=== PATIENT | male | born 1960 | race Caucasian/White ===

== ENCOUNTER 2023-12-26 10:19 | Outpatient (AMB) | payer OTHER, SELFPAY ==
[2023-12-26 10:21] VITALS: BP 160/98; PULSE 78; O2SAT 97; BMI 23.7
--- NOTE | 2023-12-26 10:21 | A.OFFPC_ITS ---
Vital Signs 12/26/23 10:21 Height 5 ft 11 in Weight 170 lb 0.2 oz BMI 23.7 BP 160/98 H Blood Pressure Location Lt brachial Position Sitting Pulse 78 Pulse Source Pulse Oximeter Pulse Oximetry (%) 97 Oxygen Delivery Method Room Air Intake Visit Reasons: PE, HTN Intake Note: Patient is here today for a physical. Technician Inventory Specialist Required: No Allergies No Known Allergies Allergy (Verified 12/26/23 10:21) Medication List - Last Reconciled 12/26/23 by Goyo Meneses MD aspirin (Adult Low Dose Aspirin) 81 mg PO DAILY [id number] C-Mn 500-400 mg (Glucosamine-Chondroitin Complex) caps PO lisinopril 5 mg PO DAILY 90 days omega-3 fatty acids (Fish Oil Concentrate) 1,000 mg PO DAILY tadalafil (Cialis) 20 mg PO Q OTHER DAY PRN 30 days Tobacco use date assessed: 12/26/23 Dental Screening Dental Screen Date: 12/26/23 Did you have a dental visit in the last 12 months?: Yes Did you have a dental problem in the last 6 months where you did not have access to dental care?: No Was dental information given to patient?: Patient has dentist HPI PE, HTN HPI Details 63-year-old male with hypertension impai red glucose tolerance and erectile dysfunction last seen last year and is here for physical exam. Patient's colonoscopy is up-to-date March 2016. At 135/140- 85 - 90 [facility] Medical History (Updated 12/22/22 @ 10:56 by Goyo Meneses MD) Shoulder pain, left Polysubstance abuse Macrocytosis Erectile dysfunction Anemia Hypertension Impaired glucose tolerance Family History (Updated 12/22/22 @ 10:21 by Hanna Padilla [facility]) Father Myocardial infarct Maternal Uncle Colon cancer Social History (Updated 12/26/23 @ 10:53 by Goyo Meneess MD) Housing: House Alcohol intake: current Alcohol intake frequency: 0-2 drinks per day Comment: 2-3 x a week glass of wine Patient Tobacco Use Status: Former Tobacco user Tobacco use type: Cigarette Years Smoked: 2019, 1/2 a pack an day 20 years e-Cigarette/Vaping Use: Never Used Second Hand Smoke Exposure: No Current occupational status: retired Cognitive needs: No Hearing needs: No Vision needs: Yes Questionnaire PHQ-9 Over the last 2 weeks, how often have you been bothered by any of the following problems? 1. Little interest or pleasure in doing things: not at all 2. Feeling down, depressed, or hopeless: not at all 3. Trouble falling or staying asleep, or sleeping too much: not at all 4. Feeling tired or having little energy: not at all 5. Poor appetite or overeating: not at all 6. Feeling bad about yourself - or that you are a failure or have let yourself or your family down: not at all 7. Trouble concentrating on things, such as reading the newspaper or watching television: not at all 8. Moving or speaking so slowly that other people could have noticed. Or the opposite - being so fidgety or restless that you have been moving around a lot more than usual: not at all 9. Thoughts that you would be better off or of hurting yourself in some way: not at all Total score: 0 Depression Screening Interpretation: Negative Depression Screening Done: Yes 00214 - PHQ-9 Billing: Yes Source: Developed by Drs. Ramez Aldana, Brittanie Hector, Mickey Chester and colleagues, with an educational wendi from [employer]. Thrive Questionnaire Date Thrive assessed: 12/26/23 I am a: Patient What is your living situation today?: I have a steady place to live Within the past 12 months, did the food you bought not last and you didn't have the money to get more?: Never true Within the past 12 months, did you worry whether your food would run out before you got money to buy more?: Never true Do you have trouble paying for medicines?: No Do you have trouble getting transportation to medical appointments?: No Do you have trouble paying your heating and electricity bill?: No Do you have trouble taking care of your child, family member or friend?: No Do you have trouble with day-to-day activities such as bathing, preparing meals, shopping, managing finances, etc.?: No Are you currently unemployed and looking for a job?: No Are you interested in more education?: No Currently or been in a relationship where the following occur: no concerns reported THRIVE Score: 0 AUDIT C Alcohol Use Questionnaire (AUDIT-C) 1. How often do you have a drink containing alcohol?: 4 or more times a week 2. How many drinks containing alcohol do you have on a typical day when you are drinking?: 1 or 2 3. How often do you have six or more drinks on one occasion?: Never Total Score: 4 SALVADOR-7 AMB Questionnaire SALVADOR-7 Date SALVADOR - 7 assessed: 12/26/23 Feeling nervous, anxious, or on edge: 0 = Not at all Not being able to stop or control worryin = Not at all Worrying too much about different things: 0 = Not at all Trouble relaxin = Not at all Being so restless that it is hard to sit still: 0 = Not at all Becoming easily annoyed or irritable: 0 = Not at all Feeling afraid as if something awful might happen: 0 = Not at all Total SALVADOR-7 score (0-4 normal; 5-9 mild; 10-14 moderate; 15-21 severe): 0 Source: Developed by Drs. Ramez Aldana, Brittanie Hector, Mickey Chester and colleagues, with an educational wendi from [employer]. SALVADOR-7 Assessment Billing SALVADOR-7 Assessment Tool: SALVADOR-7 Assessment 31042 Review of Systems Const Denies poor appetite and Denies weakness Eyes Denies no additional complaints ENT Reports Normal hearing present, Denies dizziness, Denies nasal congestion, Denies tinnitus and Denies sore throat Card Denies chest pain, Denies syncope, Denies rapid heart rate and Denies dyspnea Resp Denies cough and Denies dyspnea GI Denies change in stool character, Reports constipation, Denies diarrhea, Denies nausea and Denies vomiting Denies dysuria and Denies urinary frequency Neuro Reports Normal hearing present, Denies confusion, Denies dizziness, Denies syncope and Denies weakness Psych Denies confusion Physical exam (Primary Care) Vital Signs: Last Vital Signs Pulse 78 12/26/23 10:21 BP 160/98 H 12/26/23 10:21 Pulse Ox 97 12/26/23 10:21 Oxygen Delivery Method Room Air 12/26/23 10:21 BMI result Body Mass Index 23.7 Tobacco/Smoking Status: Tobacco use Status Tobacco use date assessed 12/26/23 12/26/23 10:22 Patient Tobacco Use Status Former Tobacco user 12/26/23 10:22 Tobacco use type Cigarette 12/26/23 10:22 e-Cigarette/Vaping Use Never Used 12/26/23 10:22 PHQ-9: PHQ-9 Score PHQ-9: Total score 0 12/26/23 10:30 Depression Screening Interpretation: Negative Thrive Assessment: Date of Thrive Assessment Date Thrive assessed 12/26/23 12/26/23 10:22 Currently or been in a relationship where the following occur: no concerns reported Const General: No confusion Orientation/consciousness: No confusion HENMT Head: Yes normocephalic Ears: external ears normal and TM's normal bilaterally Face and sinus: Yes normal facial exam Mouth: moist mucous membranes Throat: Yes tonsils normal Eyes Conjunctivae: conjunctivae normal Pupils: Equal, round and reactive pupils present and Pupil accommodation reflex normal Direct Ophthalmoscopy: normal light reflex Neck Neck: No lymphadenopathy Thyroid: Thyroid normal Chest Chest palpation & inspection: normal inspection of the chest Resp Effort & Inspection: normal respiratory effort and no audible wheezes Auscultation: clear to auscultation bilaterally, no crackles, no wheezes and lung sounds not diminished Cardio Rate: regular rate Rhythm: regular rhythm Peripheral pulses: radial pulses present and dorsalis pedis present GI Other: guaiac negative prostate N Palpation (GI): no masses Auscultation: normal bowel sounds and normoactive bowel sounds Male General Exam: Yes normal external exam Skin General skin exam: no rashes or lesions noted Rashes: no rashes Neuro General: No confusion Cranial nerves: Yes Equal, round and reactive pupils present and Yes Normal hearing present Cognition (Neuro): normal cognition Gait exam (Neuro): Normal gait present Motor exam (neuro): 5/5 motor strength present throughout Deep tendon reflexes (DTR's): Right brachioradialis reflex intensity grade: 2+, Left brachioradialis reflex intensity grade: 2+, Right patellar reflex intensity grade: 2+ and Left patellar reflex intensity grade: 2+ Extrem General: No edema Assessment and Plan Assessment & Plan (1) Annual physical exam: Code(s): Z00.00 - Encounter for general adult medical examination without abnormal findings (2) Hypertension: Code(s): I10 - Essential (primary) hypertension Qualifiers: Hypertension type: essential hypertension Qualified Code(s): I10 - Essential (primary) hypertension Plan: Continue with blood pressure medication. Decrease salt intake and exercise on lisinopril 5 mg once a day. Concern about the blood pressure being high and advised to increase lisinopril to 10 mg once a day and keep me updated with the blood pressure. (3) Impaired glucose tolerance: Code(s): R73.02 - Impaired glucose tolerance (oral) Plan: Decrease the amount of carbohydrate intake, pasta, bread, rice and potatoes are all sugar and that is aside from all the sweet stuff, remember that fruits are good but they are Sweet also. Blood work request (4) Erectile dysfunction: Code(s): N52.9 - Male erectile dysfunction, unspecified Plan: Patient has requested for change in medication. Orders: Orders Thyroid Stimulating Hormone Today R73.02 - Impaired glucose tolerance (oral) Free T4 (Free Thyroxine) Today R73.02 - Impaired glucose tolerance (oral) Complete Blood Count Auto Diff Today R73.02 - Impaired glucose tolerance (oral) Comprehensive Met. Panel Today R73.02 - Impaired glucose tolerance (oral) Lipid Panel Today E78.00 - Pure hypercholesterolemia, unspecified, R73.02 - Impaired glucose tolerance (oral) Vitamin B12 and Folate Today R73.02 - Impaired glucose tolerance (oral) Prostate Specific Antigen Scr Today R73.02 - Impaired glucose tolerance (oral) Medications: New sildenafil administer 30 minutes to 4 hours before activity 100 mg PO DAILY PRN 20 tabs 11RF sexual activity N52.9 - Male erectile dysfunction, unspecified Changed From lisinopril 5 mg PO DAILY 90 days 90 tabs 3RF I10 - Essential (primary) hypertension To lisinopril 10 mg PO DAILY 90 days 90 tabs 3RF I10 - Essential (primary) hypertension Discontinued tadalafil (Cialis) administer approximately 30min before sexual activity; do not use more than 1 dose per 24hrs Discontinued Reason: Patient Completed Course 20 mg PO Q OTHER DAY 30 days PRN 10 tabs 8RF sexual activity N52.9 - Male erectile dysfunction, unspecified Coding Level of Care Code Est Pt Prev Care 40-64y(42904) Diagnoses Annual physical exam Z00.00 Essential hypertension I10 Hypertension type: essential hypertension Impaired glucose tolerance R73.02 Erectile dysfunction N52.9 Additional Codes SALVADOR-7 Assessment Billing - SALVADOR-7 Assessment Tool: SALVADOR-7 Assessment 42630 ([id number])
== END 2023-12-26 11:12 | disposition home or self-care (01) ==
PROVIDERS: PCP Internal Medicine; Visit Provider Internal Medicine
DX: Z00.00 Encounter for general adult medical examination without abnormal findings (principal); I10 Essential (primary) hypertension; R73.02 Impaired glucose tolerance (oral); N52.9 Male erectile dysfunction, unspecified
CPT/HCPCS: 99396

== ENCOUNTER 2024-08-27 08:30 | Outpatient (AMB) | payer OTHER, SELFPAY ==
--- NOTE | 2024-08-27 08:43 | A.OFFPC_ITS ---
Vital Signs 3 08/27/24 08:46 Height 5 ft 11 in Weight 171 lb 8 oz BMI 23.9 BP 140/90 H Blood Pressure Location Lt brachial Position Sitting Pulse 79 Pulse Source Pulse Oximeter Temp 98 F Temp Source Skin Pulse Oximetry (%) 97 Oxygen Delivery Method Room Air Intake Visit Reasons: Dermatolist Refferal Intake Note: Patient is here to follow up on Physicist [facility] referral for black spot on right side of head. Master Technician Required: No Nurse Informaticist: Not Required per policy Accompanied by: Self / Same As Patient Allergies No Known Allergies Allergy (Verified 08/27/24 08:45) Medication List - Last Reconciled 08/27/24 by Anjali Roy PA-C aspirin (Adult Low Dose Aspirin) 81 mg PO DAILY qfejnahfexr-meiljdqwl-rsy C-Mn 500-400 mg (Glucosamine-Chondroitin Complex) caps PO lisinopril 10 mg PO DAILY 90 days omega-3 fatty acids (Fish Oil Concentrate) 1,000 mg PO DAILY sildenafil 100 mg PO DAILY PRN Tobacco use date assessed: 08/27/24 Dental Screening Dental Screen Date: 08/27/24 Did you have a dental visit in the last 12 months?: Yes Did you have a dental problem in the last 6 months where you did not have access to dental care?: No Was dental information given to patient?: Patient has dentist HPI Dermatolist Refferal 2 HPI0 Details 64 year old male with past history of im paired glucose tolerance, hypertension and erectile dysfunction last seen by Dr. Meneses 12/2023 coming in for acute problem. Patient tells us use of the Julee shot last week when the negrete noticed a dark spot on the right side of the scalp. He states he has felt a scab in that area for the last several months and we will occasionally scratch at it but the lesion is not itchy or painful and does not bleed when scratched. He also has a small spot on his right lower back that has been evaluated in the past determined to be likely eczema or psoriasis but has never had it evaluated by a rn provider relations. The lesion on his back we will itch occasionally but does not bleed. [facility] Medical History (Updated 08/27/24 @ 09:14 by Anjali Roy PA-C) Shoulder pain, left Polysubstance abuse Macrocytosis Erectile dysfunction Anemia Hypertension Impaired glucose tolerance Surgical History (Updated 08/27/24 @ 08:49 by ALMA Kohler) No pertinent past surgical history Family History Father Myocardial infarct Maternal Uncle Colon cancer Social History Housing: House Alcohol intake: current Alcohol intake frequency: 0-2 drinks per day Comment: 2-3 x a week glass of wine Patient Tobacco Use Status: Former Tobacco user Tobacco use type: Cigarette Years Smoked: 2020, 1/2 a pack an day 20 years e-Cigarette/Vaping Use: Never Used Second Hand Smoke Exposure: Yes service: No Current occupational status: retired Cognitive needs: No Hearing needs: No Vision needs: Yes Questionnaire PHQ-9 Over the last 2 weeks, how often have you been bothered by any of the following problems? 1. Little interest or pleasure in doing things: not at all 2. Feeling down, depressed, or hopeless: not at all 3. Trouble falling or staying asleep, or sleeping too much: not at all 4. Feeling tired or having little energy: not at all 5. Poor appetite or overeating: not at all 6. Feeling bad about yourself - or that you are a failure or have let yourself or your family down: not at all 7. Trouble concentrating on things, such as reading the newspaper or watching television: not at all 8. Moving or speaking so slowly that other people could have noticed. Or the opposite - being so fidgety or restless that you have been moving around a lot more than usual: not at all 9. Thoughts that you would be better off or of hurting yourself in some way: not at all Total score: 0 Depression Screening Interpretation: Negative Depression Screening Done: Yes Source: Developed by Drs. Ramez Aldana, Brittanie Hector, Mickey Chester and colleagues, with an educational wendi from [employer]. Thrive Questionnaire Date Thrive assessed: 08/27/24 I am a: Patient What is your living situation today?: I have a steady place to live Within the past 12 months, did the food you bought not last and you didn't have the money to get more?: Never true Within the past 12 months, did you worry whether your food would run out before you got money to buy more?: Never true Do you have trouble paying for medicines?: No Do you have trouble getting transportation to medical appointments?: No Do you have trouble paying your heating and electricity bill?: No Do you have trouble taking care of your child, family member or friend?: No Do you have trouble with day-to-day activities such as bathing, preparing meals, shopping, managing finances, etc.?: No Are you currently unemployed and looking for a job?: No Are you interested in more education?: No Please select the resources that you would like help with: None Currently or been in a relationship where the following occur: No concerns reported THRIVE Score: 0 AUDIT C Alcohol Use Questionnaire (AUDIT-C) 1. How often do you have a drink containing alcohol?: 4 or more times a week 2. How many drinks containing alcohol do you have on a typical day when you are drinking?: 1 or 2 Total Score: 4 SALVADOR-7 AMB Questionnaire SALVADOR-7 Date SALVADOR - 7 assessed: 08/27/24 Feeling nervous, anxious, or on edge: 0 = Not at all Not being able to stop or control worryin = Not at all Worrying too much about different things: 0 = Not at all Trouble relaxin = Not at all Being so restless that it is hard to sit still: 0 = Not at all Becoming easily annoyed or irritable: 0 = Not at all Feeling afraid as if something awful might happen: 0 = Not at all Total SALVADOR-7 score (0-4 normal; 5-9 mild; 10-14 moderate; 15-21 severe): 0 Source: Developed by Drs. Ramez Aldana, Brittanie Hector, Mickey Chester and colleagues, with an educational wendi from [employer]. Review of Systems Const Denies body aches, Denies chills, Denies fever(s), Denies headache(s) and Denies poor appetite Eyes Reports no additional complaints ENT Denies dizziness and Denies headache(s) Card Denies chest pain, Denies lightheadedness and Denies dyspnea Resp Denies cough and Denies dyspnea GI Reports no additional complaints Reports no additional complaints Musc Reports no additional complaints Skin/Breast Reports system reviewed and no additional complaints, except as documented and Reports as per HPI Neuro Denies dizziness and Denies headache(s) Psych Reports no additional complaints Physical exam (Primary Care) Vital Signs: Last Vital Signs Temp 98 F 08/27/24 08:46 Pulse 79 08/27/24 08:46 BP 140/90 H 08/27/24 08:46 Pulse Ox 97 08/27/24 08:46 Oxygen Delivery Method Room Air 08/27/24 08:46 BMI result Body Mass Index 23.9 Tobacco/Smoking Status: Tobacco use Status Tobacco use date assessed 08/27/24 08/27/24 08:45 Patient Tobacco Use Status Former Tobacco user 08/27/24 08:45 Tobacco use type Cigarette 08/27/24 08:45 e-Cigarette/Vaping Use Never Used 08/27/24 08:45 PHQ-9: PHQ-9 Score PHQ-9: Total score 0 08/27/24 08:45 Depression Screening Interpretation: Negative Thrive Assessment: Date of Thrive Assessment Date Thrive assessed 08/27/24 08/27/24 08:45 Currently or been in a relationship where the following occur: No concerns reported Const General: cooperative, healthy appearing, comfortable and no acute distress Orientation/consciousness: patient oriented x3 HENMT Head: Yes normocephalic Head images: 2 1. Annular, brown nevi with regular borders, no dry or flaky skin Ears: hearing grossly normal bilaterally General nose exam: Normal external nose present Eyes General: appearance normal, both eyes and all related structures Conjunctivae: conjunctivae normal Neck Neck: Yes full ROM and Yes no lymphadenopathy Resp Effort & Inspection: normal respiratory effort Auscultation: clear to auscultation bilaterally, no crackles, no rales, no rhonchi and no wheezes Cardio Rate: regular rate Rhythm: regular rhythm Skin General skin exam: no rashes or lesions noted Full body images: 2 1. Eczematous lesions Neuro General: patient oriented x3 Gait exam (Neuro): Normal gait present Extrem General: Yes normal to inspection, Yes full ROM and No edema Psych Affect: normal affect Attitude: cooperative Insight: Good insight present (Psych) Judgement: Good judgement present (Psych) Coding Level of Care Code Est Pt Level 3 (86324) Diagnoses Essential hypertension I10 Hypertension type: essential hypertension Impaired glucose tolerance R73.02 Atypical nevi D22.9 Eczematous skin lesions L98.9 Assessment & Plan Assessment & Plan (1) Hypertension: Code(s): I10 - Essential (primary) hypertension Category: Medical Qualifiers: Hypertension type: essential hypertension Qualified Code(s): I10 - Essential (primary) hypertension Plan: Continue on current blood pressure medication. Avoid salt intake and encourage healthy diet and regular exercise. Blood pressure mildly elevated on exam today patient is asymptomatic at this time. He states he drank a few cups of coffee this morning which is likely the reason for his elevated blood pressure. Continue to monitor blood pressures at home reach out to the office if blood pressures are over 140/90 (2) Impaired glucose tolerance: Code(s): R73.02 - Impaired glucose tolerance (oral) Category: Medical Plan: Decrease the amount of carbohydrates such as pasta, bread, rice, and potatoes and limit the amount of sweets. Although fruits are generally healthy they should be eaten in moderation as they are still high in sugar. (3) Atypical nevi: Code(s): D22.9 - Melanocytic nevi, unspecified Category: Medical Plan: Patient having atypical nevi recently noticed the last several months. Lesion is not itchy or painful and does not bleed when scratched. Referral placed to Dermatology for further evaluation and possible biopsy (4) Eczematous skin lesions: Code(s): L98.9 - Disorder of the skin and subcutaneous tissue, unspecified Category: Medical Plan: Patient having small patch of dry flaky skin on right lower back which has been present for several years and has not changed. It is occasionally itchy and he will use topical emollients as needed for this concern. Referral placed to Dermatology for further evaluation Plan This note was constructed using voice recognition software. While every effort has been made to ensure accuracy and senior web engineer, still areas may have been included sometimes these areas may affect the content or meeting of the given symptoms. Total time spent caring for the patient today was 20 minutes. This includes time spent before the visit reviewing the chart, time spent during the visit, and time spent after the visit and documentation. Orders: Referrals 2 Dermatology Referral D22.9 - Melanocytic nevi, unspecified
[2024-08-27 08:46] VITALS: BP 140/90; PULSE 79; TEMP 36.6; O2SAT 97; BMI 23.9
== END 2024-08-27 09:17 | disposition home or self-care (01) ==
PROVIDERS: PCP Internal Medicine
DX: I10 Essential (primary) hypertension (principal); R73.02 Impaired glucose tolerance (oral); D22.9 Melanocytic nevi, unspecified; L98.9 Disorder of the skin and subcutaneous tissue, unspecified

== ENCOUNTER → 2024-08-27 08:30 | Outpatient (BNVA) | payer OTHER, SELFPAY | PROVIDERS: PCP Internal Medicine | DX: I10 Essential (primary) hypertension (principal); R73.02 Impaired glucose tolerance (oral); D22.9 Melanocytic nevi, unspecified; L98.9 Disorder of the skin and subcutaneous tissue, unspecified | CPT/HCPCS: 99212 ==

== ENCOUNTER 2025-01-01 09:16 | Outpatient (AMB) | payer OTHER, SELFPAY ==
--- NOTE | 2025-01-01 09:19 | A.OFFPC_ITS ---
Vital Signs 3 01/01/25 09:20 Height 5 ft 11 in Weight 172 lb 2 oz BMI 24.0 BP 140/90 H Blood Pressure Location Lt brachial Position Sitting Pulse 69 Pulse Source Pulse Oximeter Temp 97.3 F Temp Source Temporal Artery Scan Pulse Oximetry (%) 96 Oxygen Delivery Method Room Air Intake Visit Reasons: Physical exam Intake Note: Patient is here today for a physical. 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: No Material Handler: Not Required per policy Accompanied by: Self / Same As Patient Allergies No Known Allergies Allergy (Verified 01/01/25 09:20) Medication List - Last Reconciled 01/01/25 by Goyo Meneses MD aspirin (Adult Low Dose Aspirin) 81 mg PO DAILY [id number] C-Mn 500-400 mg (Glucosamine-Chondroitin Complex) caps PO lisinopril 20 mg PO DAILY 90 days omega-3 fatty acids (Fish Oil Concentrate) 1,000 mg PO DAILY sildenafil 100 mg PO DAILY PRN Tobacco use date assessed: 01/01/25 Dental Screening Dental Screen Date: 08/27/24 [facility] Medical History (Updated 08/27/24 @ 09:14 by Anjali Roy PA-C) Shoulder pain, left Polysubstance abuse Macrocytosis Erectile dysfunction Anemia Hypertension Impaired glucose tolerance Surgical History No pertinent past surgical history Family History Father Myocardial infarct Maternal Uncle Colon cancer Social History (Updated 01/01/25 @ 09:59 by Goyo Meneses MD) Housing: House Alcohol intake: current Alcohol intake frequency: 0-2 drinks per day Comment: 3-5x a week glass of wine Patient Tobacco Use Status: Former Tobacco user Tobacco use type: Cigarette Years Smoked: 2020, 1/2 a pack an day 20 years e-Cigarette/Vaping Use: Never Used Second Hand Smoke Exposure: Yes service: No Current occupational status: retired Cognitive needs: No Hearing needs: No Vision needs: Yes Questionnaire PHQ-9 Over the last 2 weeks, how often have you been bothered by any of the following problems? 1. Little interest or pleasure in doing things: not at all 2. Feeling down, depressed, or hopeless: not at all 3. Trouble falling or staying asleep, or sleeping too much: not at all 4. Feeling tired or having little energy: not at all 5. Poor appetite or overeating: not at all 6. Feeling bad about yourself - or that you are a failure or have let yourself or your family down: not at all 7. Trouble concentrating on things, such as reading the newspaper or watching television: not at all 8. Moving or speaking so slowly that other people could have noticed. Or the opposite - being so fidgety or restless that you have been moving around a lot more than usual: not at all 9. Thoughts that you would be better off or of hurting yourself in some way: not at all Total score: 0 Depression Screening Interpretation: Negative Depression Screening Done: Yes Source: Developed by Drs. Ramez Aldana, Brittanie Hector, Mickey Chester and colleagues, with an educational wendi from [employer]. Thrive Questionnaire Date Thrive assessed: 12/25/24 I am a: Patient What is your living situation today?: I have a steady place to live Within the past 12 months, did the food you bought not last and you didn't have the money to get more?: Never true Within the past 12 months, did you worry whether your food would run out before you got money to buy more?: Never true Do you have trouble paying for medicines?: No Do you have trouble getting transportation to medical appointments?: No Do you have trouble paying your heating and electricity bill?: No Do you have trouble taking care of your child, family member or friend?: No Do you have trouble with day-to-day activities such as bathing, preparing meals, shopping, managing finances, etc.?: No Are you currently unemployed and looking for a job?: No Are you interested in more education?: No Please select the resources that you would like help with: None Currently or been in a relationship where the following occur: No concerns reported THRIVE Score: 0 AUDIT C Alcohol Use Questionnaire (AUDIT-C) 1. How often do you have a drink containing alcohol?: 2-3 times a week 2. How many drinks containing alcohol do you have on a typical day when you are drinking?: 1 or 2 3. How often do you have six or more drinks on one occasion?: Never Total Score: 3 SALVADOR-7 AMB Questionnaire SALVADOR-7 Date SALVADOR - 7 assessed: 08/27/24 Feeling nervous, anxious, or on edge: 0 = Not at all Not being able to stop or control worryin = Not at all Worrying too much about different things: 0 = Not at all Trouble relaxin = Not at all Being so restless that it is hard to sit still: 0 = Not at all Becoming easily annoyed or irritable: 0 = Not at all Feeling afraid as if something awful might happen: 0 = Not at all Total SALVADOR-7 score (0-4 normal; 5-9 mild; 10-14 moderate; 15-21 severe): 0 Source: Developed by Drs. Ramez Aldana, Brittanie Hector, Mickey Chester and colleagues, with an educational wendi from [employer]. Review of Systems Const Denies poor appetite and Denies weakness Eyes Denies no additional complaints ENT Reports Normal hearing present, Denies dizziness, Denies nasal congestion, Denies tinnitus and Denies sore throat Card Denies chest pain, Denies syncope, Denies rapid heart rate and Denies dyspnea Resp Denies cough and Denies dyspnea GI Denies change in stool character, Reports constipation, Denies diarrhea, Denies nausea and Denies vomiting Denies dysuria and Denies urinary frequency Neuro Reports Normal hearing present, Denies confusion, Denies dizziness, Denies syncope and Denies weakness Psych Denies confusion Physical exam (Primary Care) Vital Signs: Last Vital Signs Temp 97.3 F 01/01/25 09:20 Pulse 69 01/01/25 09:20 BP 140/90 H 01/01/25 09:20 Pulse Ox 96 01/01/25 09:20 Oxygen Delivery Method Room Air 01/01/25 09:20 BMI result Body Mass Index 24.0 Tobacco/Smoking Status: Tobacco use Status Tobacco use date assessed 01/01/25 01/01/25 09:25 Patient Tobacco Use Status Former Tobacco user 01/01/25 09:59 Tobacco use type Cigarette 01/01/25 09:59 e-Cigarette/Vaping Use Never Used 01/01/25 09:59 PHQ-9: PHQ-9 Score PHQ-9: Total score 0 01/01/25 09:48 Depression Screening Interpretation: Negative Thrive Assessment: Date of Thrive Assessment Date Thrive assessed 12/25/24 01/01/25 09:19 Currently or been in a relationship where the following occur: No concerns reported Const General: No confusion Orientation/consciousness: No confusion HENID Head: Yes normocephalic Head images: 2 1. 5 mm hyperpigmented elevated papule/nevi well defined border Ears: external ears normal and TM's normal bilaterally Face and sinus: Yes normal facial exam Mouth: moist mucous membranes Throat: Yes tonsils normal Eyes Conjunctivae: conjunctivae normal Pupils: Equal, round and reactive pupils present and Pupil accommodation reflex normal Direct Ophthalmoscopy: normal light reflex Neck Neck: No lymphadenopathy Thyroid: Thyroid normal Chest Chest palpation & inspection: normal inspection of the chest Resp Effort & Inspection: normal respiratory effort and no audible wheezes Auscultation: clear to auscultation bilaterally, no crackles, no wheezes and lung sounds not diminished Cardio Rate: regular rate Rhythm: regular rhythm Peripheral pulses: radial pulses present and dorsalis pedis present GI Other: guaiac negative, prostate N Palpation (GI): no masses Auscultation: normal bowel sounds and normoactive bowel sounds Male General Exam: Yes normal external exam Back/Spine/Pelvis Back/spine/pelvis image: 2 1. oval salmon colored scaly rash Skin General skin exam: no rashes or lesions noted Rashes: no rashes Neuro General: No confusion Cranial nerves: Yes Equal, round and reactive pupils present and Yes Normal hearing present Cognition (Neuro): normal cognition Gait exam (Neuro): Normal gait present Motor exam (neuro): 5/5 motor strength present throughout Deep tendon reflexes (DTR's): Right brachioradialis reflex intensity grade: 2+, Left brachioradialis reflex intensity grade: 2+, Right patellar reflex intensity grade: 2+ and Left patellar reflex intensity grade: 2+ Extrem General: No edema Coding Level of Care Code Est Pt Prev Care 40-64y(89007) Diagnoses Annual physical exam Z00.00 Essential hypertension I10 Hypertension type: essential hypertension Impaired glucose tolerance R73.02 Atypical nevi D22.9 Assessment & Plan Assessment & Plan (1) Annual physical exam: Code(s): Z00.00 - Encounter for general adult medical examination without abnormal findings Category: Medical Plan: Patient is advised to eat healthy, keep well hydrated, keep active and have adequate sleep. (2) Hypertension: Code(s): I10 - Essential (primary) hypertension Category: Medical Qualifiers: Hypertension type: essential hypertension Qualified Code(s): I10 - Essential (primary) hypertension Plan: Continue with blood pressure medication. Decrease salt intake and exercise on lisinopril 10. Patient advised to get blood work done (3) Impaired glucose tolerance: Code(s): R73.02 - Impaired glucose tolerance (oral) Category: Medical Plan: Decrease the amount of carbohydrate intake, pasta, bread, rice and potatoes are all sugar and that is aside from all the sweet stuff, remember that fruits are good but they are Sweet also. Patient was advised to get blood work done (4) Atypical nevi: Code(s): D22.9 - Melanocytic nevi, unspecified Category: Medical Plan: Patient was referred to dermatology Plan History of Present Illness The patient is a 64-year-old male presenting for a routine physical examination and management of chronic conditions, including essential hypertension and erectile dysfunction. The patient is currently on lisinopril 10 mg, reporting fluctuating blood pressure levels, attributed to lifestyle stressors. Occasionally, blood pressure rises to 152 mmHg, necessitating potential dose adjustment. Previous negative experiences with phlebotomy have delayed regular blood work. Erectile dysfunction is managed with on-demand sildenafil, with no recent changes in symptoms. 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 Dermatology consultation is pending due to insurance and scheduling obstacles. The last colonoscopy was conducted in March 2016, indicating a pending screening. In October, the patient experienced self-limiting flu-like symptoms during a skiing trip. Family history relevant to cardiovascular and cancer risks includes a paternal history of myocardial infarction and an uncle with colon cancer. The patient consumes alcohol moderately, avoids tobacco and recreational drugs, and maintains an active lifestyle with no significant new health concerns or surgeries. 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 - Active lifestyle, including hiking and skiing - Attempting to build a house with associated stress - Moderate alcohol consumption: approximately 3-5 glasses of wine per week - No current tobacco or recreational drug use - Concerns about potential tick-borne diseases due to outdoor activities Review of Systems - Cardiovascular: Denies chest pain, palpitations - Gastrointestinal: Denies nausea, vomiting; bowel movements regular - Genitourinary: Occasional night urination but denies urinary difficulties - Dermatologic: Reports mole noticed by a third constitution party, diagnosed as dermatofibroma - Respiratory: Denies shortness of breath or chest discomfort - Neurological: Denies dizziness or syncope outside of flu-like episode - Musculoskeletal: No recent falls or injuries reported Physical Exam General: Cooperative, healthy appearing, comfortable, no acute distress and well developed Orientation: Patient oriented x3 Limitations: No limitations Head: Normal to inspection Ears: Hearing could be better Nose: Normal external nose present Face and sinus: Normal facial exam Eyes: Appearance normal, both eyes and all related structures Neck: Normal visual inspection and Yes full ROM Respiratory: Normal respiratory effort and able to speak in complete sentences. Clear to auscultation bilaterally Cardiovascular: Regular rate and rhythm. Normal S1 and S2 GI: Normal to inspection. Soft to palpation and nontender Skin: No rashes or lesions noted, but patient has a mole and a dermatofibroma on the right lower back Neuro: Patient oriented x3 Extremities: Normal to inspection Results Plan I have recommended an increase in the lisinopril dosage for better control of essential hypertension and have provided guidance on home monitoring of blood pressure. The patient will continue sildenafil for erectile dysfunction, with the option for dermatology consultation if changes in the dermatofibroma occur. A colonoscopy is recommended due to being overdue, and the patient is informed of considerations for flu vaccination. I provided education on the use of prophylactic doxycycline for tick exposure, aligning with the patient's outdoor activity plans. Patient was informed and verbally consented to the use of an ambient scribe for clinic note documentation during this visit. Discussion Notes I discussed with the patient the importance of managing hypertension with the proposed increase in lisinopril to 20 mg to maintain appropriate blood pressure control whilst monitoring kidney function. We addressed the dermatofibroma, advising watchful waiting for any changes and deferred dermatology consultation due to external constraints. The patient is informed about the necessity of completing a colonoscopy screening to manage colon health actively. I provided anticipatory guidance on outdoor activities and the prophylactic use of doxycycline if a tick bite occurs. The patient consents to the modifications in management as mentioned. Patient Instructions - Increase lisinopril dosage to 20 mg daily after completing blood work - Monitor blood pressure at home and record findings - Continue using sildenafil as needed for erectile dysfunction - Schedule a colonoscopy as soon as feasible - Be vigilant for tick exposure during outdoor activities and consider prophylactic doxycycline if bitten - Maintain an active lifestyle and hydration - Follow up on any changes in the dermatofibroma - Ensure vaccinations are current and consider seasonal flu vaccination Orders: Orders 2 Hemoglobin A1c Today I10 - Essential (primary) hypertension Comprehensive Met. Panel Today I10 - Essential (primary) hypertension Lipid Panel Today E78.00 - Pure hypercholesterolemia, unspecified, I10 - Essential (primary) hypertension Thyroid Stimulating Hormone Today I10 - Essential (primary) hypertension Vitamin B12 and Folate Today I10 - Essential (primary) hypertension Prostate Specific Antigen Scr Today I10 - Essential (primary) hypertension Free T4 (Free Thyroxine) Today I10 - Essential (primary) hypertension Complete Blood Count Auto Diff Today I10 - Essential (primary) hypertension Medications: New 2 doxycycline hyclate 200 mg (2 x 100 mg) PO ONCE 2 caps 0RF I10 - Essential (primary) hypertension Changed 2 From lisinopril 10 mg PO DAILY 90 days 90 tabs 0RF I10 - Essential (primary) hypertension To lisinopril 20 mg PO DAILY 90 tabs 0RF 90 days I10 - Essential (primary) hypertension
[2025-01-01 09:20] VITALS: BP 140/90; PULSE 69; TEMP 36.3; O2SAT 96; BMI 24.0
== END 2025-01-01 10:21 | disposition home or self-care (01) ==
LOC: HO.HMCH 09:16
PROVIDERS: PCP Internal Medicine; Visit Provider Internal Medicine
DX: Z00.00 Encounter for general adult medical examination without abnormal findings (principal); I10 Essential (primary) hypertension; R73.02 Impaired glucose tolerance (oral); D22.9 Melanocytic nevi, unspecified

== ENCOUNTER → 2025-01-01 09:16 | Outpatient (BNVA) | payer OTHER, SELFPAY | PROVIDERS: PCP Internal Medicine; Visit Provider Internal Medicine | DX: Z00.00 Encounter for general adult medical examination without abnormal findings (principal); I10 Essential (primary) hypertension; E78.00 Pure hypercholesterolemia, unspecified; R73.02 Impaired glucose tolerance (oral); D22.9 Melanocytic nevi, unspecified; N52.9 Male erectile dysfunction, unspecified; Z79.899 Other long term (current) drug therapy | CPT/HCPCS: 99396 ==